=== PATIENT | male | born 1985 | race Caucasian/White ===

== ENCOUNTER 2024-04-06 19:56 | Emergency (ER) | payer SELFPAY ==
[2024-04-06 20:57] VITALS: RESP 18; TEMP 97.8; O2SAT 97
[2024-04-06] MEDS ORDERED: Augmentin 875-125 Tablet ONE (22:06)
[2024-04-06] MEDS ORDERED: TORAdol 30 mg Injection ONE (22:06)
--- NOTE | 2024-04-06 22:06 | ERPHSYRPT ---
- History of Present Illness Time Seen by Provider: 04/06/24 20:50 Source: patient Exam Limitations: no limitations Patient Subjective Stated Complaint: pt states rt mouth pain and swelling Triage Nursing Assessment: pt ambulated into the er; pt is axo x4; c/o rt mouth pain; pt states 9/10 pain to rt side of mouth; multiple caries present to upper and lower teeth; multiple missing and broken teeth present; Physician History: 38-year-old male presents to emergency department for evaluation of dental pain. Patient has been experiencing dental pain over the past 2 to 3 days. Pain worse today. No trauma no fever. Patient has multiple carious and missing teeth. However the right upper molar tooth #3 is the worst. There is swelling at the gingiva just adjacent to this tooth location. Airway patent. No headach e. No nausea no vomiting no other associated symptomology. Patient otherwise feels well. He denies medication allergies. Patient voices no other complaints or concerns at this time. Portions of this note were created with voice recognition technology. There may be grammatical, spelling, punctuation or sound alike errors Timing/Duration: day(s) Severity: moderate Modifying Factors: Improves With: nothing Associated Symptoms: denies symptoms Allergies/Adverse Reactions: No Known Drug Allergies Allergy (Unverified 04/06/24 20:42) Hx Tetanus, Diphtheria Vaccination/Date Given: Yes Hx Influenza Vaccination/Date Given: No Hx Pneumococcal Vaccination/Date Given: No Travel Risk - International Travel Have you traveled outside of the country in past 3 weeks: No - Emerging Infectious Disease Are you exhibiting symptoms associated with any current EIDs: No - Review of Systems Constitutional: No Symptoms, No Fever, No Chills Eyes: No Symptoms Ears, Nose, & Throat: No Symptoms Respiratory: No Symptoms, No Cough, No Dyspnea Cardiac: No Symptoms, No Chest Pain, No Edema, No Syncope Abdominal/Gastrointestinal: No Symptoms, No Abdominal Pain, No Nausea, No Vomiting, No Diarrhea Genitourinary Symptoms: No Symptoms, No Dysuria Musculoskeletal: No Symptoms, No Back Pain, No Neck Pain Skin: No Symptoms, No Rash Neurological: No Symptoms, No Dizziness, No Focal Weakness, No Sensory Changes Psychological: No Symptoms Endocrine: No Symptoms Hematologic/Lymphatic: No Symptoms Immunological/Allergic: No Symptoms All Other Systems: Reviewed and Negative - Past Medical History Pertinent Past Medical History: Yes GI Medical History: Hernia - Past Surgical History Past Surgical History: Yes Gastrointestinal: Hernia Repair Other Surgical History: hernia repair x2 - Social History Smoking Status: Current every day smoker How long have you smoked: 20 Exposure to second hand smoke: Yes Drug Use: none - Social Determinants of Health Will the patient participate in the screening: Yes Do you worry about a steady place to live?: No Do you have any problems with any of the following?: No known problems In the past 12 months,have you had to go without utilities?: No Transportation Issues: No Has anyone in your support network made you feel unsafe?: No Have you or anyone in your house had to go without enough: No - Nursing Vital Signs Nursing Vital Signs: Initial Vital Signs Temperature 97.8 F 04/06/24 20:43 Pulse Rate 85 04/06/24 20:43 Respiratory Rate 18 04/06/24 20:43 Blood Pressure 147/97 04/06/24 20:43 O2 Sat by Pulse Oximetry 97 04/06/24 20:43 Pain Scale Pain Intensity 9 - Physical Exam General Appearance: no apparent distress, alert Eye Exam: PERRL/EOMI, eyes nml inspection Ears, Nose, Throat Exam: normal ENT inspection, TMs normal, pharynx normal, moist mucous membranes Neck Exam: normal inspection, non-tender, supple, full range of motion Respiratory Exam: normal breath sounds, lungs clear, airway intact, No respiratory distress Cardiovascular Exam: regular rate/rhythm, normal heart sounds, normal peripheral pulses Gastrointestinal/Abdomen Exam: soft, normal bowel sounds, No tenderness, No mass Back Exam: normal inspection, normal range of motion, No CVA tenderness, No vertebral tenderness Extremity Exam: normal inspection, normal range of motion, pelvis stable Neurologic Exam: alert, oriented x 3, cooperative, normal mood/affect, nml cerebellar function, nml station & gait, sensation nml, No motor deficits Skin Exam: normal color, warm, dry, No rash Lymphatic Exam: No adenopathy SpO2 Interpretation: normal SpO2: 97 O2 Delivery: Room Air - Course Nursing assessment & vital signs reviewed: Yes Ordered Tests: Medication Summary Discontinued Medications Generic Name Dose Route Start Last Admin Trade Name Freq PRN Reason Stop Dose Admin Hydrocodone Bitart/Acetaminophen 1 tab 04/06/24 22:00 Hydrocodone /Apap 7.5/325 Mg 1 Each Tablet PO 04/06/24 22:01 STAT ONE Amoxicillin/Clavulanate Potassium 875 mg 04/06/24 22:00 Amox Tr/Potassium Clavulanate 875 Mg Tablet PO 04/06/24 22:01 STAT ONE Ketorolac Tromethamine 60 mg 04/06/24 21:59 Ketorolac Tromethamine 30 Mg/Ml Inj IM 04/06/24 22:00 STAT ONE - Progress Progress: improved Progress Note: 38-year-old male with multiple carious and missing teeth. Patient presents with right upper molar pain. Physical exam reveals a dental abscess. Patient requesting pain control. Patient received both Toradol and a Reydon pill. Augmentin administered for antibiotic coverage. A prescription for Augmentin To radol provided. Patient will be discharged home with 4 Reydon pills. Patient agrees to follow-up with his dentist within 48 hours for reevaluation. Patient voices no other complaints or concerns at this time. Portions of this note were created with voice recognition technology. There may be grammatical, spelling, punctuation or sound alike errors Complexity of problem addressed is moderate acute complicated. No critical care time. Complex of data reviewed and analyzed is none. Diagnosis made based on history and physical exam. Risk of complication and or risk of morbidity/mortality patient management is high. Patient received oral narcotic and p.o. narcotic pain medication for home. Vital stable. Time spent to discharge patient approximately 15 minutes. Plan of care established for shared decision making. No social determinants of health present impede follow-up. Portions of this note were created with voice recognition technology. There may be grammatical, spelling, punctuation or sound alike errors 04/06/24 22:04 Counseled pt/family regarding: diagnosis, need for follow-up - Departure Departure Disposition: Home Clinical Impression: Dental abscess, Carious teeth, Pain, dental Condition: Stable Critical Care Time: No Additional Instructions: Discharge/Care Plan CONCEPCIÓN DALY was seen on 04/06/24 in the Emergency Room. The patient was counseled regarding Diagnosis,Lab results, Imaging studies, need for follow up and when to return to the Emergency Room. Prescriptions given: Discharge Note I have spoken with the patient and/or caregivers. I have explained the patient's condition, diagnosis and treatment plan based on the information available to me at this time. I have answered the patient's and/or caregiver's questions and addressed any concerns. The patient and/or caregivers have as good understanding of the patient's diagnosis, condition and treatment plan as can be expected at this point. The vital signs have been stable. The patient's condition is stable and appropriate for discharge from the emergency department. The patient will pursue further outpatient evaluation with the primary care physician or other designated or consulting physician as outlined in the discharge instructions. The patient and/or caregivers are agreeable to this plan of care and follow-up instructions have been explained in detail. The patient and/or caregivers have received these instruction. The patient/and or caregivers are aware that any significant change in condition or worsening of symptoms should prompt an immediate return to this or the closest emergency department or call 911. Prescriptions: Amox Tr/Potass Clav. 875 mg [Augmentin 875-125 Tablet] 875 mg PO BID 7 Days #14 tablet Ketorolac Trometh 10 mg Tab [TORAdol 10 MG TABLET] 10 mg PO TID 5 Days #15 tablet
[2024-04-06] MEDS: Augmentin 875-125 Tablet PO ONE (22:08)
[2024-04-06] MEDS: TORAdol 30 mg Injection IM ONE (22:09)
[2024-04-06] MEDS ORDERED: NORCO 5/325 MG ONE (22:13)
[2024-04-06] MEDS: NORCO 5/325 MG PO ONE (22:14)
[2024-04-06 22:15] VITALS: BP 142/92; PULSE 80
[2024-04-06] MEDS: NORCO 7.5/325 MG TAB PO ONE (22:20)
== END 2024-04-06 22:29 | disposition home or self-care (01) ==
LOC: ED 19:56
DX: K04.7 Periapical abscess without sinus (principal); K02.9 Dental caries, unspecified; K08.89 Other specified disorders of teeth and supporting structures; Z79.899 Other long term (current) drug therapy; Z72.0 Tobacco use
CPT/HCPCS: 96372; 99283; J1885; A9270-GY